=== PATIENT | female | born 1955 | race Caucasian/White ===

== ENCOUNTER 2017-11-23 07:50 | Outpatient (CLI) | payer OTHER ==
--- NOTE | 2017-11-23 13:24 | NM ---
RADIONUCLIDE GASTRIC EMPTYING SCAN: HISTORY: Nausea and vomiting, unspecified. RADIOPHARMACEUTICAL: Technetium 99m sulfur colloid 2.1 millicuries administered orally in scrambled eggs. FINDINGS: There is 43% emptying of the ingested gastric contents at 1 hour, 48% emptying at 2 hours, 72% emptyi ng at 3 hours, and 87% emptying at 4 hours. The calculated gastric emptying half-time measures 132 minutes. IMPRESSION: Delayed gastric emptying. POS: C
== END 2017-11-23 07:51 | disposition home or self-care (01) ==
LOC: NM 07:50
PROVIDERS: ATTEND Internal Medicine Gastroenterology
DX: R11.2 Nausea with vomiting, unspecified (principal); K30 Functional dyspepsia
CPT/HCPCS: 78264; A9541